=== PATIENT | female | born 2000 | race Caucasian/White ===

== ENCOUNTER 2020-08-06 14:35 | Inpatient (IN) | payer BC ==
[2020-02-22 14:31] VITALS: Ht 160 cm; Wt 66.7 kg
[~2020-08-06] VITALS: Ht 160 cm; Wt 66.7 kg
[~2020-08-06 14:35] MED LIST: PRENAVITE1 TAB PO
[2020-08-06 17:51] LABS: HEMATOCRIT 41.7 % (36.0-48.0); HEMOGLOBIN 13.7 g/dL (12-16); MCH 30.8 pg (26.0-34.0); MCHC 32.8 g/dL (31.0-37.0); MEAN PLATELET VOLUME 10.7 fL (7.4-10.4); RBC 4.44 10x6/uL (4.00-5.40); RDW 13.4 % (11.5-14.5)
[2020-08-06 18:14] LABS: UDS - AMPHET NEGATIVE QUAL (NEGATIVE); UDS - BARB NEGATIVE QUAL (NEGATIVE); UDS - BENZO NEGATIVE QUAL (NEGATIVE); UDS - COCAINE NEGATIVE QUAL (NEGATIVE); UDS - OPIATE NEGATIVE QUAL (NEGATIVE); UDS - PCP NEGATIVE QUAL (NEGATIVE); UDS - THC NEGATIVE QUAL (NEGATIVE)
--- NOTE | 2020-08-06 20:53 | NUR ---
PT REC'D TO ROOM 1273 FOR RECOVERY. FUNDUS FIRM AND MIDLINE WITH MODERATE LOCHIA NOTED. DRESSING TO ABDOMEN CDI. RONDON PATENT WITH YELLOW URINE NOTED. Jazmyne SMITH RN
[2020-08-07 00:32] VITALS: BP 110/70
--- NOTE | 2020-08-07 00:32 | NUR ---
VSS. PT MEDICATED FOR PAIN LEVEL OF 6/10 WITH PRN TORADOL. PERICARE PROVIDED AT THIS TIME. NO DISTRESS NOTED. Jazmyne SMITH RN
--- NOTE | 2020-08-07 02:02 | NUR ---
PT RATES PAIN 1/10 AT THIS TIME. NO DISTRESS NOTED. Jazmyne SMITH RN
[2020-08-07 04:12] VITALS: BP 106/59
--- NOTE | 2020-08-07 04:12 | NUR ---
PT REC'D IN BED AT THIS TIME. DENIES PAIN. VSS. PERICARE PROVIDED. FUNDUS REMAINS FIRM AT THIS TIME. Jazmyne SMITH RN
[2020-08-07 05:17] LABS: BASOPHILS 0.1 % (0-2); EOSINOPHILS 0 % (0-7); LYMPHOCYTES 10.8 % (15-50); MCH 31.5 pg (26.0-34.0); MCHC 33.4 g/dL (31.0-37.0); MCV 94.5 fL (80.0-100.0); MEAN PLATELET VOLUME 10.2 fL (7.4-10.4); MONOCYTES 6.9 % (2-11); NEUTROPHILS 82.2 % (40-80); RDW 13.2 % (11.5-14.5); WBC 15.3 10x3/uL (4.8-10.8)
[2020-08-07 05:27] LABS: HEMOGLOBIN 9.7 g/dL (12-16); PLATELET COUNT 121 10x3/uL (130-400); RBC 3.07 10x6/uL (4.00-5.40)
--- NOTE | 2020-08-07 06:09 | NUR ---
PT MEDICATED WITH TORADOL. PAIN LEVEL 03/11. L SAGE SMITH
--- NOTE | 2020-08-07 06:23 | NUR ---
CALLED THIS AM REGARDING AM LAB WORK. NO NEW OEDERS GIVEN AT THIS TIME. Jazmyne SMITH RN
[2020-08-07 07:34] VITALS: BP 100/57
--- NOTE | 2020-08-07 07:34 | NUR ---
PT SITTING UP IN BED. AWAKE. AAO X 3. VSS. HRRR WITHOUT AUDIBLE MURMUR. BBS CLEAR. BS X 4. ABDOMEN SOFT/NON-DISTENDED. FUNDUS FIRM AT U/1. RUBRA LOCHIA SMALL AMT. PERIPAD CHANGED. NO CLOTS NOTED. MILD EDEMA NOTED TO LABIA. ABDOMINAL DRESSING DRY WITHOUT DRAINAGE NOTED. NEG HOMANS' SIGN. PPP. NO EDEMA NOTED TO BLE. RONDON TO GRAVITY DRAINING JEOVANY COLORED URINE. PIV OF NS WITH PITOCIN INFUSING TO RIGHT WRIST AT 125 ML/HR. DILAUDID JUNIOR WEB DEVELOPER ORDERED. BUTTON IN REACH. PT STATES INCISIONAL PAIN OF "1" ON 0-10 PAIN SCALE. ICE PACK TO INCISION. PT INSTRUCTED ON INCENTIVE SPIROMETER. SCDS ON BLE. PUMP ON. PT MOTHER IN ROOM ASSISTING WITH CARE. SR UP X 2. CALL LIGHT IN REACH. PT DENIES NEEDS OR C/O.
--- NOTE | 2020-08-07 09:12 | NUR ---
PT SITTING UP IN BED. HOLDS WITH MUCH WARMTH SHOWN. PT DENIES NEEDS OR C/O. I/O COMPLETED.
--- NOTE | 2020-08-07 10:41 | NUR ---
DR STEEL VISITS WITH PT.
--- NOTE | 2020-08-07 11:15 | NUR ---
PIV CONVERTED TO SALINE LOCK. FLUSHES EASILY WITH 10 ML NS. SITE CLEAR. RONDON DC'D WITH 150 ML OF JEOVANY COLORED URINE NOTED IN BAG. PT OOB AND AMB, WITH STEADY GAIT TO BR.
[2020-08-07 11:22] VITALS: BP 92/55
--- NOTE | 2020-08-07 11:22 | NUR ---
PT UNABLE TO VOID. STATES "I DON'T FEEL GOOD". COLOR PALE. PT ASSISTED BACK TO BED X 2 ASSISTS. PT REPOSITIONS SUPINE WITH HOB FLAT. VS OBTAINED AND NOTED. PT STATES "I FEEL BETTER NOW". COLOR IMPROVING.
[2020-08-07 11:46] LABS: BASOPHILS 0.1 % (0-2); EOSINOPHILS 0.1 % (0-7); HEMATOCRIT 27.5 % (36.0-48.0); HEMOGLOBIN 9.4 g/dL (12-16); LYMPHOCYTES 14.9 % (15-50); MCH 32.1 pg (26.0-34.0); MCHC 34.2 g/dL (31.0-37.0); MCV 93.9 fL (80.0-100.0); MEAN PLATELET VOLUME 9.4 fL (7.4-10.4); MONOCYTES 7.9 % (2-11); PLATELET COUNT 129 10x3/uL (130-400); RBC 2.93 10x6/uL (4.00-5.40); RDW 13.5 % (11.5-14.5); WBC 13.2 10x3/uL (4.8-10.8)
--- NOTE | 2020-08-07 13:00 | NUR ---
PT LYING IN SEMIFOWLER'S POSITION IN BED. EYES CLOSED. RESP NON-LABORED. PT NOT DISTURBED TO ALLOW FOR REST. SR UP X 2. CALL LIGHT IN REACH.
--- NOTE | 2020-08-07 14:40 | NUR ---
PT SITTING UP IN BED. AWAKE. DENIES PAIN OR NEEDS.
--- NOTE | 2020-08-07 14:45 | NUR ---
DR STEEL NOTIFIED OF LAB RESULTS. NO NEW ORDERS.
--- NOTE | 2020-08-07 15:01 | NUR ---
PT CALLS ON LIGHT. THIS NURSE TO ROOM. PT REQUESTS AND RECEIVES MOTRIN 600 MG AND NORCO 10/325 PO FOR PT C/O INCISIONAL PAIN. PT INSTRUCTED ON MEDS. VERBALIZES UNDERSTANDING.
--- NOTE | 2020-08-07 15:34 | NUR ---
PT OOB AND AMB TO BR TO VOID. STEADY, SLOW GAIT NOTED. PT VOIDS 400 ML OF BLOOD-TINGED URINE. PERICARE DONE PER PT. PANTIES AND PAD ON. PT AMBULATES BACK TO BED. CHERYL ACTIVITY WELL.
--- NOTE | 2020-08-07 16:45 | NUR ---
PT PICKLE MAKER LIGHT. THIS NURSE TO ROOM. PT MOTHER ASKING QUESTIONS ABOUT CIRCUMCISION. WILL NOTIFY NURSERY.
--- NOTE | 2020-08-07 18:46 | NUR ---
PT OOB AND AMB TO BR. VOIDS 300 ML OF JEOVANY COLORED URINE. PERICARE DONE PER PT. PT AMBULATES BACK TO BED. C/O INCISIONAL PAIN OF "5" ON 0-10 PAIN SCALE. NORCO 10/325 GIVEN PO ORDERED. PT INSTRUCTED ON MED. VERBALIZES UNDERSTANDING. FRESH ICE PACK AND ICE WATER PROVIDED TO PT.
--- NOTE | 2020-08-07 19:03 | NUR ---
PATIENT LYING IN BED, NO DISTRESS NOTED. PT DENIES NEEDS AT THIS TIME. FAMILY AT BEDSIDE FOR SUPPORT. BEDSIDE SHIFT REPORT COMPLETED WITH SAGE FOSS TO ASSUME PT CARE.
[2020-08-07 20:18] VITALS: BP 108/53
--- NOTE | 2020-08-07 20:18 | NUR ---
SHIFT ASSESSMENT COMPLETED AT THIS TIME, SEE FLOWSHEET.
--- NOTE | 2020-08-07 21:21 | NUR ---
PATIENT PROVIDED WITH A SANDWICH TRAY AND SPRITE AT THIS TIME. PAIN MEDICATION SCANNED AND ADMINISTERED PER MD ORDERS, SEE EMAR.
--- NOTE | 2020-08-07 21:35 | NUR ---
PATIENT ASSISTED UP TO BATHROOM AT THIS TIME WITH STEADY GAIT, DENIES FEELING DIZZY.
--- NOTE | 2020-08-07 21:54 | NUR ---
IV FLUSHED WITH 10ML NS AT THIS TIME PER MD ORDERS, PATIENT AND SALINE SCANNED INTO Vers[employer]
--- NOTE | 2020-08-07 22:56 | NUR ---
PAIN MEDICATION ADMINISTERED PER PT REQUEST AND MD ORDERS. PT AND MEDICATION SCANNED AT THIS TIME IN [facility], SEE EMAR.
--- NOTE | 2020-08-07 23:29 | NUR ---
PATIENT CALLED OUT FOR NIPPLES FOR THE BABY BOTTLES, NIPPLES PROVIDED AT THIS TIME, NO FURTHER NEEDS IDENTIFIED. WILL CONTINUE TO MONITOR.
--- NOTE | 2020-08-08 01:16 | NUR ---
PATINET RESTING QUIETLY WITH EYES CLOSED, EASILY AROUSED TO VERBAL AND PT DENIES NEEDS AT THIS TIME. BED LOCKED IN LOW POSITION, SIDE RAILS UPX2, CALL HSAHID AND TRAY TABLE IN REACH. INFANT REMAINS IN OPEN CRIB AT BEDSIDE AND PTS FAMILY REMAINS IN THE ROOM FOR SUPPORT.
--- NOTE | 2020-08-08 02:36 | NUR ---
IN TO CHECK ON PATIENT, PT AWAKE LYING IN BED. DENIES NEEDS OR PAIN AT THIS TIME. INFANT REMAINS IN OPEN CRIB AT BEDSIDE. FAMILY AT BEDSIDE FOR SUPPORT. WILL CONTINUE TO MONITOR.
--- NOTE | 2020-08-08 03:13 | NUR ---
PT CALLS REQUESTING FORMULA AND ASSISTANCE WITH CHANGING INFANTS DIAPER. FORMULA PROVIDED. EDUCATION DONE ON CHANGING INFANT.
--- NOTE | 2020-08-08 04:04 | NUR ---
PT REQUESTED PAIN MEDICATION, ADMINISTERED NORCO 10/325 MG PO PER MD ORDERS. PT AND MEDICATION SCANNED IN [facility], SEE EMAR.
--- NOTE | 2020-08-08 06:18 | NUR ---
PATIENT RESTING QUIETLY IN BED WITH EYES OPEN, ICE WATER REQUESTED AND PROVIDED. NO FURTHER NEEDS IDENTIFIED. WILL CONTINUE TO MONITOR.
--- NOTE | 2020-08-08 07:32 | NUR ---
AM ASSESSMENT COMPLETED, SEE FLOWSHEET. PACIFIER AND BLANKETS FOR INFANT TAKEN TO ROOM PER PT REQUEST.TRASH REMOVED PER FAMILY REQUEST. CARE PLAN REVIEWED PATIENT DENIES PAIN, FURTHER NEEDS, OR QUESTIONS AT THIS TIME
[2020-08-08 07:44] VITALS: BP 97/54
[2020-08-08 08:13] LABS: RAPID PLASMA REAGIN Non Reactive (Non Reactive)
--- NOTE | 2020-08-08 10:10 | NUR ---
PT UP TO SHOWER WITH MINIMAL ASSISTANCE PER OBST, LINENS AND GOWN CHANGE. PERICARE DONE PER PT. PT DENIES FURTHER NEEDS AT THIS TIME
--- NOTE | 2020-08-08 11:59 | NUR ---
PT DESIRES DC HOME TODAY, PAGE TO DR STEEL. ASSISTED PATIENT WITH TIGHT FITTING BRA AND YAZAN BANDAGE PER PT REQUEST, SHE WISHES TO BOTTLE FEED.
--- NOTE | 2020-08-08 12:26 | NUR ---
DR MILAN AT BEDSIDE DISCUSSING POC WITH PT. ABD BINDER AND MILK OF MAG ORDERED. D/C ORDERS REC'D
--- NOTE | 2020-08-08 13:30 | NUR ---
D/C INSTRUCTIONS DISCUSSED, PAPERWORK AND EDUCATION PACKETS PROVIDED. PT AND MOTHER DENY FURTHER QUESTIONS. PIV REMOVED, GAUZE AND BANDAID TO SITE. INFANT PLACED IN CARSEAT PER PT AND CHECKED BY RN. PT AND MOTHER DENY FURTHER NEEDS AT THIS TIME. PT IN WHEELCHAIR AND OFF UNIT @0763
== END 2020-08-08 13:20 | disposition home or self-care (01) | DRG 788 ==
LOC: D.LDO 14:35 → D.LD 17:15 → D.SDCHOLD 08-07 14:22 → D.LD 08-07 14:22
PROVIDERS: ADMIT Obstetrics & Gynecology; ATTEND Obstetrics & Gynecology
PROC: 10D00Z1 Extraction of Products of Conception, Low, Open Approach (ICD-10-PCS; principal; 2020-08-06)
DX: O76 Abnormality in fetal heart rate and rhythm complicating labor and delivery (principal); Z3A.39 39 weeks gestation of pregnancy; Z37.0 Single live birth; O26.53 Maternal hypotension syndrome, third trimester